=== PATIENT | male | born 1965 | race American Indian/Alaskan Native ===

== ENCOUNTER 2017-05-05 18:13 | Emergency (ER) | payer BC, OTHER ==
--- NOTE | 2017-05-06 00:05 | Emergency Department Report ---
ED Extremity Problem HPI - General Chief complaint: Extremity Injury, Lower Stated complaint: LEFT FOOT SWOLLEN Time Seen by Provider: 05/06/17 00:04 Source: patient Mode of arrival: Ambulatory Limitations: No Limitations - History of Present Illness Initial comments: Patient reports that he has left foot pain for 4 days. He said he had no injuries his left foot to his great toe is red and swollen. Denies any history of gout. Patient was treated on 02/08/2013 for pain and this hospital and that was the last time that he was here. He said pain to left foot and great toe is 8 out of 10 achy and throbbing. Pain is worse with weightbearing and to touch better with resting. When asked, patient has been consuming in unusual amount of beer,eating Fish and red meats specifically pork. He said he's been doing this more than usual. Patient says he has never been diagnosed with gout and he 's never had similar incident in the past. Denies any fever or chills. Denies any numbness or tingling. Denies any swelling to legs. He said he took over- the-counter medication for pain but it didn't help. Patient said he thinks is from walking a lot and his toe rubbing against issues. MD Complaint: joint swelling, joint paint Onset/Timin -: days(s) Location: left, lower extremity, toe, other (foot) History of Same: No -: No myalgia, Yes arthralgia, No fever, No associated dyspnea, No associated chest pain Radiation: none Severity scale (0 -10): 8 Quality: aching (throbbing in) Consistency: constant Improves with: immobilization, rest Worsens with: weight bearing, walking, palpation Associated Symptoms: arthralgias. denies: chest pain, shortness of breath, fever, myalgias, rash - Related Data Previous Rx's Medication Instructions Recorded Last Taken Type Cyclobenzaprine [Flexeril] 5 mg PO TID PRN #14 tablet 02/08/13 Unknown Rx Indomethacin 50 mg PO Q8H PRN 5 Days #15 capsule 05/06/17 Unknown Rx methylPREDNISolone [Medrol] 4 mg PO QAM 6 Days #1 tab.ds.pk 05/06/17 Unknown Rx traMADol [Ultram 50 MG tab] 50 mg PO Q6HR PRN 3 Days #12 tablet 05/06/17 Unknown Rx Allergies Allergy/AdvReac Type Severity Reaction Status Date / Time No Known Allergies Allergy Verified 02/08/13 11:31 ED Review of Systems ROS: Stated complaint: LEFT FOOT SWOLLEN Other details as noted in HPI Comment: All other systems reviewed and negative Constitutional: no symptoms reported Respiratory: no symptoms reported Cardiovascular: denies: chest pain, palpitations, dyspnea on exertion, orthopnea , edema, syncope, paroxysmal nocturnal dyspnea Gastrointestinal: denies: abdominal pain, nausea, vomiting, diarrhea, constipation Musculoskeletal: joint swelling, arthralgia. denies: back pain, myalgia Skin: denies: rash Neurological: denies: headache, weakness, numbness, paresthesias, confusion, abnormal gait, vertigo ED Past Medical Hx - Past Medical History Previous Medical History?: No - Surgical History Past Surgical History?: No - Family History Family history: hypertension - Social History Smoking Status: Never Smoker Substance Use Type: None - Medications Home Medications: Home Medications Medication Instructions Recorded Confirmed Last Taken Type Cyclobenzaprine [Flexeril] 5 mg PO TID PRN #14 tablet 02/08/13 Unknown Rx Indomethacin 50 mg PO Q8H PRN 5 Days #15 capsule 05/06/17 Unknown Rx methylPREDNISolone [Medrol] 4 mg PO QAM 6 Days #1 tab.ds.pk 05/06/17 Unknown Rx traMADol [Ultram 50 MG tab] 50 mg PO Q6HR PRN 3 Days #12 tablet 05/06/17 Unknown Rx ED Physical Exam - General Limitations: No Limitations General appearance: alert, in no apparent distress - Head Head exam: Present: atraumatic, normocephalic, normal inspection - Eye Eye exam: Present: normal appearance, PERRL, EOMI - ENT ENT exam: Present: normal exam, normal orophraynx, mucous membranes moist - Neck Neck exam: Present: normal inspection, full ROM. Absent: tenderness, meningismus, lymphadenopathy - Respiratory Respiratory exam: Present: normal lung sounds bilaterally. Absent: respiratory distress, wheezes, rales, rhonchi, stridor, chest wall tenderness, accessory muscle use, decreased breath sounds, prolonged expiratory - Cardiovascular Cardiovascular Exam: Present: regular rate, normal rhythm, normal heart sounds. Absent: systolic murmur, diastolic murmur - GI/Abdominal GI/Abdominal exam: Present: soft, normal bowel sounds. Absent: distended, tenderness, guarding, rebound, rigid - Extremities Exam Extremities exam: Present: full ROM, tenderness (left great toe), normal capillary refill, joint swelling ( left great toe extending down to the first metatarsal bone.), other (clubbing, cyanosis or edema. +2 pulses in all extremities. No neurovascular compromise. Patient with +5 strength in all extremities. No joint effusion, crepitus or deformity. Patient with redness and swelling to left great toe with pain with palpation. Temperature to left great toe and left first metatarsal area is warmer comparing to temperature and right side.). Absent: normal inspection, pedal edema, calf tenderness - Expanded Lower Extremity Exam Left Hip exam: Present: normal inspection, full ROM, pelvic stability. Absent: tenderness, swelling, abrasion, laceration, ecchymosis, deformity, crepidus, dislocation, erythema, external rotation, internal rotation, shortening Upper Leg exam: Present: normal inspection, full ROM. Absent: tenderness, swelling, abrasion, laceration, ecchymosis, deformity, crepidus, dislocation, erythema Knee exam: Present: normal inspection, full ROM, full knee extension. Absent: tenderness, swelling, abrasion, laceration, ecchymosis, deformity, crepidus, dislocation, erythema, effusion, pain w/ pronation/supination, posterior draw sign, pain/laxity with valgus, pain/laxity with varus Lower Leg exam: Present: normal inspection, full ROM. Absent: tenderness, swelling, abrasion, laceration, ecchymosis, deformity, crepidus, dislocation, erythema, palpable cord, Jack's sign Ankle exam: Present: normal inspection, full ROM. Absent: tenderness, swelling , abrasion, laceration, ecchymosis, deformity, crepidus, dislocation, erythema Foot/Toe exam: Present: full ROM, tenderness (tenderness to palpate left great toe about a lateral extending into first metatarsal area.), swelling (left great toe extending into the first metatarsal area.), erythema ( great toe extending to the first metatarsal area). Absent: normal inspection, abrasion, laceration, ecchymosis, deformity, crepidus, dislocation, amputation, puncture wound, foreign body, calcaneal tenderness, tenderness at base of 5th metatarsal , nail avulsion, subungual hematoma Neuro vascular tendon exam: Present: no vascular compromise, significant pain with passive ROM of distal joint. Absent: pulse deficit, abnormal cap refill, motor deficit, sensory deficit, tendon deficit, extremity cold to touch, pallor , abnormal 2-point discrimination, decreased fine/light touch, foot drop, peroneal nerve deficit Gait: Positive: observed and limited by pain - Back Exam Back exam: Present: normal inspection, full ROM. Absent: tenderness, CVA tenderness (R), CVA tenderness (L), muscle spasm, paraspinal tenderness, vertebral tenderness, rash noted - Neurological Exam Neurological exam: Present: alert, oriented X3, normal gait, reflexes normal. Absent: motor sensory deficit - Psychiatric Psychiatric exam: Present: normal affect, normal mood - Skin Skin exam: Present: warm, dry, intact, erythema (left great toe outer lateral extending into the first metatarsal area.). Absent: rash ED Course Vital Signs 05/05/17 18:16 Temperature 97.7 F Pulse Rate 61 Respiratory 18 Rate Blood Pressure 155/97 O2 Sat by Pulse 99 Oximetry - Reevaluation(s) Reevaluation #1: 05/06/17 01:01 Patient given the deltasone 60 milligram by mouth and Toradol 60 mg IM in emergency room for acute gout pain ED Medical Decision Making - Medical Decision Making ED course: Pt presented with redness, swelling and pain to left foot at great toe extending into first metatarsal area. Patient found to have acute gout flareup. He was given Deltasone 60 mg by mouth and Toradol 60 mg IM and emergency room report positive relief of pain. Patient educated on gout and I discussed the family only to follow up with his primary care physician for further management. I also discussed with him diet and food to avoid in the future to prevent gout flare. Patient given discharge instruction on gout and discharged from the emergency room and prescription for Medrol Dosepak. Tramadol and indomethacin and to follow-up with primary care physician. Patient does not have a primary care physician so I told him to follow up at [facility]. Critical care attestation.: If time is entered above; I have spent that time in minutes in the direct care of this critically ill patient, excluding procedure time. ED Disposition Clinical Impression: Arthralgia of left foot Gout attack Qualifiers: Gout site: toe Gout etiology: unspecified cause Laterality: left Qualified Code (s): M10.9 - Gout, unspecified Disposition: DC-01 TO HOME OR SELFCARE Is pt being admited?: No Does the pt Need Aspirin: No Condition: Stable Instructions: Arthralgia (ED), Acute Gouty Arthritis (ED), Low Purine Diet (ED) Additional Instructions: follow-up with outside Medical Center Please take medication as prescribed. See discharge instruction on gout and foods that are low in purine to prevent gout flareup in the future Prescriptions: Indomethacin 50 mg PO Q8H PRN 5 Days #15 capsule PRN Reason: GOUT methylPREDNISolone [Medrol] 4 mg PO QAM 6 Days #1 tab.ds.pk traMADol [Ultram 50 MG tab] 50 mg PO Q6HR PRN 3 Days #12 tablet PRN Reason: Pain Referrals: PRIMARY CARE,MD [Primary Care Provider] - 2-3 Days [facility] [Outside] - 2-3 Days Forms: Work/School Release Form(ED)
[2017-05-06] MEDS ORDERED: DELTASONE PO ONE (00:06)
[2017-05-06] MEDS ORDERED: TORADOL IM ONE (00:06)
[2017-05-06 01:55] VITALS: BP 150/85
== END 2017-05-06 01:20 | disposition home or self-care (01) ==
LOC: ED 18:13
DX: M10.9 Gout, unspecified (principal); M79.672 Pain in left foot
CPT/HCPCS: 96372; 99282; J1885; J7512